=== PATIENT | female | born 1965 | race Caucasian/White ===

== ENCOUNTER 2017-03-24 11:59 | Emergency (ER) | payer BC ==
--- NOTE | 2017-03-24 12:01 | PDOC ---
History of Present Illness - General Chief Complaint: Ear Problem Stated Complaint: LEFT EAR PAIN, FEELS CLOGGED Time Seen by Provider: 03/24/17 12:00 - History of Present Illness Initial Comments: 03/24/17 12:08 The patient is a 51-year-old female with no significant past medical history who presents to the emergency department with several days of left ear fullness. She states that she feels that the ear is "clogged" and she feels mild discomfort at the area. She is not noted any significant changes in her hearing. She denies fever, chills, rhinorrhea, sore throat. She denies headache. She denies pain with manipulation of the external ear. She was seen at an urgent care and told that "there was fluid in her ear." She was prescribed 14 days of Augmentin. She comes to our emergency department "for a second opinion." Past History - Past Medical History Allergies/Adverse Reactions: Allergies Allergy/AdvReac Type Severity Reaction Status Date / Time No Known Allergies Allergy Verified 03/24/17 12:00 Home Medications: Ambulatory Orders Albuterol Sulfate Inhaler - [Ventolin HFA Inhaler -] 1 [facility] ASDIR PRN Ibuprofen [Advil -] 400 mg PO ONCE 03/24/17 Salmeterol/Fluticasone [Advair 100Mcg/50Mcg -] 1 [facility] ASDIR 03/24/17 Review of Systems - Review of Systems Comments:: 03/24/17 12:00 CONSTITUTIONAL: Absent: fever, chills, fatigue EYES: Absent: visual changes ENT: Present: see HPI Absent: sore throat CARDIOVASCULAR: Absent: chest pain, palpitations, loss of consciousness RESPIRATORY: Absent: cough, SOB GI: Absent: abdominal pain, nausea, vomiting, constipation, diarrhea GENITOURINARY: Absent: dysuria, frequency, hematuria MUSKULOSKELETAL: Absent: back pain, arthralgia, myalgia SKIN: Absent: rash NEURO: Absent: headache, dizziness *Physical Exam - Physical Exam Comments: 03/24/17 12:01 GENERAL: Well-appearing, well-nourished. No apparent distress. HEENT: Normocephalic, atraumatic. PERRL, EOM intact. Left tympanic membrane with minimal bulging, with some opacification and air- fluid level. The tympanic membrane is very slightly erythematous. CARDIOVASCULAR: Normal S1, S2. Regular rate and rhythm. PULMONARY: Clear to auscultation bilaterally. ABDOMEN: Soft, non-distended, non-tender. EXTREMITIES: Normal ROM in all four extremities. No gross deformities. SKIN: Warm, dry. No rash NEUROLOGICAL: No focal neurological deficits. 03/24/17 12:09 Medical Decision Making - Medical Decision Making 03/24/17 12:09 The patient is well-appearing and in no acute distress I have counseled her to take the Augmentin as prescribed I am adding oral Claritin and intranasal Flonase She understands the need to see your nose and throat on Sunday Clinical impression: Acute otitis media, possibly bacterial Otitis media with effusion Return to the emergency department immediately with ANY new, persistent or worsening symptoms. You MUST call and follow up with your doctor tomorrow. Please make sure your doctor reviews the results of your emergency department evaluation. *DC/Admit/Observation/Transfer Diagnosis at time of Disposition: Otitis media with effusion, Acute otitis media - Discharge Dispostion Disposition: HOME Condition at time of disposition: Stable - Referrals Referrals: Juan Luis Torres MD [Staff Physician] - Call tomorrow - Patient Instructions Printed Discharge Instructions: Middle Ear Infection Additional Instructions: Return to the emergency department immediately with ANY new, persistent or worsening symptoms. You MUST call and follow up with your doctor tomorrow. Please make sure your doctor reviews the results of your emergency department evaluation.
[2017-03-24 12:05] VITALS: BP 143/86; PULSE 79; TEMP 98.6; BMI 21.2
== END 2017-03-24 12:30 | disposition home or self-care (01) ==
LOC: FER 11:59
DX: H65.192 Other acute nonsuppurative otitis media, left ear (principal)
CPT/HCPCS: 99283-25